=== PATIENT | male | born 1985 | race Caucasian/White ===

== ENCOUNTER → 2017-07-26 | Outpatient (CLI) | payer BC | LOC: RAD 11:43 | DX: M25.562 Pain in left knee (principal) ==

== ENCOUNTER 2017-09-05 11:38 | Emergency (ER) | payer BC ==
[~2017-09-05] VITALS: Ht 167.6 cm; Wt 70.5 kg
[2017-09-05 12:24] LABS: EOS # 0.1 (0.04-0.40); EOS % 0.9 % (0.0-4.0); HEMATOCRIT 46.7 % (42.0-52.0); HEMOGLOBIN 15.3 g/dL (13.5-18.0); LYMPH# 1.9 (1.50-4.00); MEAN CELL VOLUME 95 fl (78-100); MEAN CORPUSCULAR HEMOGLOBIN 31 pg (27-31); MEAN CORPUSCULAR HGB CONC 33 g/dL (33-37); MEAN PLATELET VOLUME 8.9 fl (7.4-10.4); MONO # 1.2 (0.20-0.80); NEU # 7.6 (1.40-6.50); PLATELET COUNT 235 K/mm3 (130-400); RED BLOOD COUNT 4.91 M/mm3 (4.20-5.60); RED CELL DISTRIBUTION WIDTH 13.1 % (11.5-14.5); WHITE BLOOD COUNT 10.9 K/mm3 (4.8-10.8)
[2017-09-05 12:39] LABS: ALBUMIN 4.5 g/dL (3.5-5.0); BUN/CREATININE RATIO 18.6 (6.0-26.0); CALCIUM 9.5 mg/dL (8.4-10.2); POTASSIUM 4.3 mmol/L (3.6-5.0); TOTAL BILIRUBIN 0.7 mg/dL (0.2-1.3)
[2017-09-05 12:58] LABS: URINE APPEARANCE HAZY; URINE BILIRUBIN NEGATIVE (NEGATIVE); URINE BLOOD 250 ery/uL (NEGATIVE); URINE COLOR YELLOW; URINE GLUCOSE NEGATIVE (NEGATIVE); URINE KETONE NEGATIVE (NEGATIVE); URINE LEUKOCYTE ESTERASE NEGATIVE (NEGATIVE); URINE NITRATE NEGATIVE (NEGATIVE); URINE PROTEIN(semi-quant) TRACE mg/dL (NEGATIVE); URINE UROBILINOGEN NORMAL (NORMAL); URINE WBC 0-1 /hpf (0-3)
[2017-09-05 12:59] LABS: URINE MUCUS PRESENT (NOT PRESENT)
[2017-09-05] MEDS ORDERED: NORCO 325 MG-51 TA1 PO (14:49)
[2017-09-05 15:09] VITALS: BP 132/84
== END 2017-09-05 15:09 | disposition home or self-care (01) ==
LOC: ED 11:38
PROVIDERS: Nurse Practitioner Primary Care
DX: R19.09 Other intra-abdominal and pelvic swelling, mass and lump (principal); N50.811 Right testicular pain; R10.2 Pelvic and perineal pain; F17.200 Nicotine dependence, unspecified, uncomplicated
CPT/HCPCS: J1885; J2270; Q9967

== ENCOUNTER 2017-09-11 00:50 | Emergency (ER) | payer BC ==
[~2017-09-11 00:50] MED LIST: NORCO 325 MG-51 TA1 PO
[2017-09-11] MEDS ORDERED: XARELTO15 MG PO (01:02)
[2017-09-11 01:58] VITALS: BP 114/76
== END 2017-09-11 01:58 | disposition home or self-care (01) ==
LOC: ED 00:50
DX: I82.220 Acute embolism and thrombosis of inferior vena cava (principal); I82.421 Acute embolism and thrombosis of right iliac vein; I82.411 Acute embolism and thrombosis of right femoral vein; F17.200 Nicotine dependence, unspecified, uncomplicated; Z79.01 Long term (current) use of anticoagulants; Z79.899 Other long term (current) drug therapy

== ENCOUNTER 2017-09-27 12:29 | Emergency (ER) | payer BC ==
[~2017-09-27] VITALS: Ht 165.1 cm; Wt 70.5 kg
[~2017-09-27 12:29] MED LIST changes: +XARELTO15 MG PO
[2017-09-27 13:29] LABS: BASO # 0.1 (0.02-0.10); EOS # 0.2 (0.04-0.40); EOS % 2.1 % (0.0-4.0); HEMATOCRIT 42.2 % (42.0-52.0); HEMOGLOBIN 13.7 g/dL (13.5-18.0); LYMPH# 2.2 (1.50-4.00); MEAN CELL VOLUME 95 fl (78-100); MEAN CORPUSCULAR HEMOGLOBIN 31 pg (27-31); MEAN CORPUSCULAR HGB CONC 33 g/dL (33-37); MEAN PLATELET VOLUME 8.8 fl (7.4-10.4); MONO # 0.6 (0.20-0.80); NEU # 4.7 (1.40-6.50); RED BLOOD COUNT 4.44 M/mm3 (4.20-5.60); RED CELL DISTRIBUTION WIDTH 12.6 % (11.5-14.5); WHITE BLOOD COUNT 7.7 K/mm3 (4.8-10.8)
[2017-09-27 13:30] LABS: ALBUMIN 4.6 g/dL (3.5-5.0); BUN/CREATININE RATIO 18.7 (6.0-26.0); PLATELET COUNT 504 K/mm3 (130-400); TOTAL BILIRUBIN 0.5 mg/dL (0.2-1.3); TOTAL PROTEIN 8.1 g/dL (6.3-8.2)
[2017-09-27 16:25] VITALS: BP 142/78
== END 2017-09-27 16:21 | disposition home or self-care (01) ==
LOC: ED 12:29
PROVIDERS: Nurse Practitioner Primary Care
DX: R07.89 Other chest pain (principal); Z79.01 Long term (current) use of anticoagulants; Z86.718 Personal history of other venous thrombosis and embolism
CPT/HCPCS: Q9967

== ENCOUNTER → 2017-11-05 | Outpatient (CLI) | payer BC ==
[2017-11-05 09:19] LABS: ALBUMIN 4.4 g/dL (3.5-5.0); CALCIUM 9.5 mg/dL (8.4-10.2); TOTAL BILIRUBIN 0.6 mg/dL (0.2-1.3); TOTAL PROTEIN 7.2 g/dL (6.3-8.2)
== END ==
LOC: LAB 08:50
PROVIDERS: Family Medicine
DX: E78.00 Pure hypercholesterolemia, unspecified (principal); N26.1 Atrophy of kidney (terminal); I82.220 Acute embolism and thrombosis of inferior vena cava; R19.00 Intra-abdominal and pelvic swelling, mass and lump, unspecified site

== ENCOUNTER → 2017-12-16 | Outpatient (CLI) | payer BC ==
[2017-12-16 08:02] LABS: ALBUMIN 4.3 g/dL (3.5-5.0); CALCIUM 9.6 mg/dL (8.4-10.2); POTASSIUM 4.1 mmol/L (3.6-5.0); TOTAL BILIRUBIN 0.8 mg/dL (0.2-1.3); TOTAL PROTEIN 7.1 g/dL (6.3-8.2)
== END ==
LOC: LAB 07:16
PROVIDERS: Family Medicine
DX: E78.00 Pure hypercholesterolemia, unspecified (principal); I82.409 Acute embolism and thrombosis of unspecified deep veins of unspecified lower extremity; R19.00 Intra-abdominal and pelvic swelling, mass and lump, unspecified site

== ENCOUNTER → 2018-02-28 | Outpatient (CLI) | payer BC | LOC: LAB 09:13 | DX: I82.220 Acute embolism and thrombosis of inferior vena cava (principal); N26.1 Atrophy of kidney (terminal); E78.00 Pure hypercholesterolemia, unspecified; R19.00 Intra-abdominal and pelvic swelling, mass and lump, unspecified site ==

== ENCOUNTER 2018-09-04 19:25 | Emergency (ER) | payer BC ==
[2018-09-04] MEDS ORDERED: ASPIRIN 32325 MG/TAB PO (19:37)
[2018-09-04] MEDS ORDERED: DEXTROAMPH SACC10 M1 PO (19:38)
[2018-09-04 20:24] VITALS: BP 120/78
== END 2018-09-04 20:24 | disposition home or self-care (01) ==
LOC: ED 19:25
DX: S81.811A Laceration without foreign body, right lower leg, initial encounter (principal); F17.210 Nicotine dependence, cigarettes, uncomplicated; Z23 Encounter for immunization; Z79.82 Long term (current) use of aspirin; Z88.6 Allergy status to analgesic agent; W25.XXXA Contact with sharp glass, initial encounter; Y92.009 Unspecified place in unspecified non-institutional (private) residence as the place of occurrence of the external cause
CPT/HCPCS: 90715

== ENCOUNTER 2018-09-14 09:03 | Emergency (ER) | payer BC ==
[~2018-09-14 09:03] MED LIST changes: +ASPIRIN 32325 MG/TAB PO; +DEXTROAMPH SACC10 M1 PO
[2018-09-14 09:28] VITALS: BP 125/53
== END 2018-09-14 09:28 | disposition home or self-care (01) ==
LOC: ED 09:03
DX: S81.811D Laceration without foreign body, right lower leg, subsequent encounter (principal)